=== PATIENT | male | born 1945 | race Caucasian/White ===

== ENCOUNTER 2020-12-29 06:16 | Observation (INO) | payer MEDICARE ==
[2020-12-29] MEDS ORDERED: Sodium Chloride 0.9% 1,000 ML IV SCH ×2 (07:15→13:00)
[2020-12-29] MEDS ORDERED: Lidocaine 1% 10 ML MDV INJECT ONE (07:19)
[2020-12-29] MEDS ORDERED: Lidocaine 2% Jelly 10 ML Urojet ONE (07:26)
--- NOTE | 2020-12-29 07:31 | EDM.PDOC ---
ED HPI GENERAL MEDICAL PROBLEM - General Chief Complaint: Gastrointestinal Problem Stated Complaint: RECTAL BLEEDING Time Seen by Provider: 12/29/20 07:18 Source of Information: Reports: Patient, Family History Limitations: Reports: No Limitations - History of Present Illness INITIAL COMMENTS - FREE TEXT/NARRATIVE: 75-year-old male presents to the ED for evaluation of persistent rectal bleeding of bright red blood with clots starting yesterday afternoon. He states he became constipated which she never does as his bowels tend to be on the looser side and after that he passed blood after constipated stool and is continuing to bleed. He estimates he went 6 or 8 times yesterday and woke up this morning with the discovery soaked in blood. He feels mildly lightheaded and dizzy this morning. He ate normally yesterday. Very little abdominal discomfort. He can feel his bowels working hard her grumbling and growling but no pain. No previous abdominal surgery. 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 He was seen twice in the last year for the jolanta lar problem and will be seen again in a year. Of note the patient is on Plavix 75 mg once daily after having a stent placed in September of this year in the left anterior descending artery. No myocardial infarction ensued. He is getting chest discomfort with mowing the lawn. Onset: Sudden Onset Date: 12/28/20 Onset Time: 09:00 Duration: Hour(s):, Constant Location: Reports: Other (Almost every hour to 2 hours yesterday) Quality: Reports: Other Severity: Moderate (No pain persistent bleeding per rectum) Improves with: Reports: None Worsens with: Reports: None Context: Denies: Activity, Exercise, Lifting, Sick Contact, Trauma, Other Associated Symptoms: Reports: Weakness, Other. Denies: Confusion, Chest Pain, Cough, cough w sputum, Diaphoresis, Fever/Chills, Headaches, Loss of Appetite, Malaise, Nausea/Vomiting, Rash, Seizure, Shortness of Breath, Syncope Treatments [employer]: Reports: Other (see below) (Only prescribed medications) Rectal Pain Score (Numeric/FACES): 6 - Related Data Allergies Allergy/AdvReac Type Severity Reaction Status Date / Time No Known Allergies Allergy Verified 12/29/20 06:31 Home Meds: Home Meds ALPRAZolam 2 mg PO BEDTIME 12/29/20 [History] Acetaminophen [Tylenol] 500 mg PO Q6HR PRN 12/29/20 [History] Aspirin [Halfprin] 81 mg PO DAILY 12/29/20 [History] Clopidogrel Bisulfate [Plavix] 75 mg PO DAILY 12/29/20 [History] Magnesium 400 mg PO DAILY 12/29/20 [History] Melatonin 5 mg PO BEDTIME PRN 12/29/20 [History] Multivit-Min/FA/Lycopen/Lutein [Centrum Silver Tablet] 1 tab PO DAILY 12/29/20 [History] Pantoprazole [ProTONIX] 40 mg PO DAILY 12/29/20 [History] Psyllium Husk [Metamucil] 1 pack PO DAILY 12/29/20 [History] Rosuvastatin [Crestor] 20 mg PO DAILY 12/29/20 [History] Past Medical History Cardiovascular History: Reports: High Cholesterol, Hypertension Gastrointestinal History: Reports: Colon Polyp, Hemorrhoids Neurological History: Reports: Other (See Below) 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 Psychiatric History: Reports: Anxiety - Infectious Disease History Infectious Disease History: Reports: Chicken Pox, Measles, Mumps - Past Surgical History HEENT Surgical History: Reports: Visual Other HEENT Surgeries/Procedures: Wears glasses Cardiovascular Surgical History: Reports: Vascular Surgery Other Cardiovascular Surgeries/Procedures: Angioplasty 10/03/20 GI Surgical History: Reports: Colonoscopy, Other (See Below) Other GI Surgeries/Procedures: flex sig 12/18/20; Precancerous rectal lesion removed in 2009 Social & Family History - Family History Family Medical History: No Pertinent Family History - Tobacco Use Tobacco Use Status *Q: Never Tobacco User - Caffeine Use Caffeine Use: Reports: None - Alcohol Use Days Per Week of Alcohol Use: 2 Number of Drinks Per Day: 3 Total Drinks Per Week: 6 - Recreational Drug Use Recreational Drug Use: No - Living Situation & Occupation Living situation: Reports: Occupation: Retired Social History Comment: Currently resides [place] of the [facility] in [place]. Out in [place] on vacation ED ROS GENERAL - Review of Systems Review Of Systems: See Below Constitutional: Reports: Malaise, Weakness, Fatigue. Denies: Fever, Chills, Decreased Appetite, Weight Loss HEENT: Reports: Glasses Respiratory: Reports: Shortness of Breath. Denies: No Symptoms, Wheezing, Cough Cardiovascular: Reports: Blood Pressure Problem. Denies: Chest Pain, Claudication, Dyspnea on Exertion, Edema, Lightheadedness, Orthopnea, Palpitations Endocrine: Reports: Fatigue GI/Abdominal: Reports: Other (Bright red bleeding per rectum.). Denies: Abdominal Pain : Reports: Frequency, Other (Nocturia x2-3) Musculoskeletal: Reports: Neck Pain, Shoulder Pain, Back Pain, Joint Pain Skin: Reports: No Symptoms (Occasional knee and hip pain) Neurological: Reports: Dizziness, Weakness (Over the last day.) Psychiatric: Reports: No Symptoms Hematologic/Lymphatic: Reports: No Symptoms Immunologic: Reports: No Symptoms ED EXAM, GI/ABD - Physical Exam Exam: See Below Exam Limited By: No Limitations General Appearance: Alert, WD/WN, No Apparent Distress, Other (Patient is pallid in appearance. Temperature is 36.0 with a heart rate of 103 at sinus at the bedside respiratory is 14 with O2 sats of 100% room air. BP 117/83) Eyes: Bilateral: Normal Appearance (Mild blepharal pallor no scleral icterus) Throat/Mouth: Normal Inspection, Normal Lips, Normal Oropharynx, Other Head: Atraumatic (Tongue is mildly dry and coated), Normocephalic Neck: Normal Inspection, Supple, Non-Tender, Full Range of Motion. No: Lymphadenopathy (L), Lymphadenopathy (R) Respiratory/Chest: No Respiratory Distress, Lungs Clear, Normal Breath Sounds, No Accessory Muscle Use Cardiovascular: Normal Peripheral Pulses, Regular Rate, Rhythm, No Edema, No Gallop, No Murmur, No Rub GI/Abdominal Exam: Normal Bowel Sounds, Soft, Non-Tender, No Organomegaly, No Distention, No Abnormal Bruit (Male) Exam: No Hernia Rectal (Males) Exam: Normal Rectal Tone, Other (Bright red blood per rectum.) Back Exam: Normal Inspection, Full Range of Motion. No: CVA Tenderness (L), CVA Tenderness (R) Extremities: Normal Inspection, Normal Range of Motion, Non-Tender, No Pedal Edema Neurological: Alert, Oriented, CN II-XII Intact, Normal Cognition, No Motor/Sensory Deficits Psychiatric: Normal Affect, Normal Mood Skin Exam: Warm, Dry, Intact, Pallor (Mildly pallid) ED ABDOMINAL/GI PROCEDURES - Additional/Other Procedure(s) Procedure(s) (Free Text): Rigid sigmoidoscopy performed up to 18 cm but I all encountered was bright red fresh blood up to that area. I cannot localize that it was coming from anyone source. It is pure bright red blood without clots. Patient tolerated the procedure well. Course - Vital Signs Last Recorded V/S: Last Vital Signs Temp 36.6 C 12/29/20 19:33 Pulse 88 12/29/20 19:33 Resp 12 12/29/20 19:33 BP 126/67 12/29/20 19:33 Pulse Ox 97 12/29/20 19:33 Orthostatic Blood Pressure [ 84/47 Standing] Orthostatic Blood Pressure [ 124/77 Supine] - Orders/Labs/Meds Orders: Active Orders 24 hr Category Date Time Status Patient Status [ADT] Routine ADT 12/29/20 16:11 Active Oxygen Therapy [RC] PRN Care 12/29/20 16:11 Active Up With Assistance [RC] ASDIRECTED Care 12/29/20 16:11 Active VTE/DVT Education [RC] PER UNIT ROUTINE Care 12/29/20 16:11 Active Vital Signs [RC] Q4H Care 12/29/20 16:11 Active Regular Diet [DIET] Diet 12/29/20 Dinner Active ALPRAZolam [ALPRAZolam] Med 12/29/20 21:00 Ordered 2 mg PO BEDTIME Aspirin [Halfprin] Med 12/30/20 09:00 Active 81 mg PO DAILY Clopidogrel [Plavix] Med 12/30/20 09:00 Pending 75 mg PO DAILY Dextrose 5%-0.9% NaCl [Dextrose 5%-Normal Saline] 1,000 Med 12/29/20 12:00 Active ml IV ASDIRECTED Magnesium Oxide Med 12/30/20 09:00 Active 400 mg PO DAILY Melatonin Med 12/29/20 21:00 Active 6 mg PO BEDTIME PRN Rosuvastatin Med 12/30/20 09:00 Ordered 20 mg PO DAILY Sodium Chloride 0.9% [Normal Saline] 1,000 ml Med 12/29/20 13:00 Active IV ASDIRECTED Schedule Procedure [COMM] Stat Oth 12/29/20 13:02 Ordered Transfuse PRBC [Transfuse Red Blood Cells] [COMM] Stat Ot 12/29/20 12:48 Ordered Resuscitation Status Routine Resus Stat 12/29/20 16:11 Ordered Medication Orders Aspirin (Aspirin 81 Mg Tab.Ec) 81 mg PO DAILY [facility] Clopidogrel Bisulfate (Clopidogrel 75 Mg Tab) 75 mg PO DAILY [facility] Dextrose/Sodium Chloride (Dextrose 5%-Normal Saline) 1,000 mls @ 250 mls/hr IV ASDIRECTED CHUNG Last Admin: 12/29/20 12:08 Dose: 250 mls/hr Documented by: NICOLE Sodium Chloride (Normal Saline) 1,000 mls @ 150 mls/hr IV ASDIRECTED CHUNG Last Admin: 12/29/20 13:25 Dose: 150 mls/hr Documented by: NICOLE Magnesium Oxide (Magnesium Oxide 400 Mg Tab) 400 mg PO DAILY [facility] Melatonin (Melatonin 3 Mg Tab) 6 mg PO BEDTIME PRN PRN Reason: Sleep Non-Formulary Medication (Alprazolam [Alprazolam]) 2 mg PO BEDTIME CHUNG Non-Formulary Medication (Rosuvastatin) 20 mg PO DAILY [facility] Oxycodone/Acetaminophen (Acetaminophen/Oxycodone 325-5 Mg Tab) 1 tab PO Q4H PRN PRN Reason: Pain (moderate 4-6) Last Admin: 12/29/20 19:03 Dose: 1 tab Documented by: WENDI Pantoprazole Sodium (Pantoprazole 40 Mg Tab.Cr) 40 mg PO ACBREAKFAST [facility] Labs: Laboratory Tests 12/29/20 12/29/20 12/29/20 Range/Units 07:15 07:15 07:15 WBC 5.90 (4.23-9.07) K/mm3 RBC 3.58 L (4.63-6.08) M/mm3 Hgb 11.5 L (13.7-17.5) gm/dl Hct 35.6 L (40.1-51.0) % MCV 99.4 H (79.0-92.2) fl MCH 32.1 (25.7-32.2) pg MCHC 32.3 (32.2-35.5) g/dl RDW Std Deviation 50.3 H (35.1-43.9) fL Plt Count 179 (163-337) K/mm3 MPV 11.5 (9.4-12.3) fl Neut % (Auto) 52.7 (34.0-67.9) % Lymph % (Auto) 29.8 (21.8-53.1) % Long % (Auto) 15.8 H (5.3-12.2) % Eos % (Auto) 1.2 (0.8-7.0) Baso % (Auto) 0.3 (0.1-1.2) % Neut # (Auto) 3.11 (1.78-5.38) K/mm3 Lymph # (Auto) 1.76 (1.32-3.57) K/mm3 Long # (Auto) 0.93 H (0.30-0.82) K/mm3 Eos # (Auto) 0.07 (0.04-0.54) K/mm3 Baso # (Auto) 0.02 (0.01-0.08) K/mm3 PT (9.7-12.0) SECONDS INR APTT (21.7-31.4) SECONDS Sodium 138 (136-145) mEq/L Potassium 3.9 (3.5-5.1) mEq/L Chloride 104 (98-107) mEq/L Carbon Dioxide 29 (21-32) mEq/L Anion Gap 8.9 (5-15) BUN 17 (7-18) mg/dL Creatinine 0.9 (0.7-1.3) mg/dL Est Cr Clr Drug Dosing 75.48 mL/min Estimated GFR (MDRD) > 60 (>60) mL/min BUN/Creatinine Ratio 18.9 H (14-18) Glucose 128 H (70-99) mg/dL Calcium 8.2 L (8.5-10.1) mg/dL Total Bilirubin 0.4 (0.2-1.0) mg/dL AST 11 L (15-37) U/L ALT 19 (16-63) U/L Alkaline Phosphatase 45 L (46-116) U/L NT-Pro-B Natriuret Pep (0-125) pg/mL Total Protein 6.7 (6.4-8.2) g/dl Albumin 3.4 (3.4-5.0) g/dl Globulin 3.3 gm/dL Albumin/Globulin Ratio 1.0 (1-2) SARS-CoV-2 RNA (YOBANY) (NEGATIVE) Blood Type A POSITIVE Gel Antibody Screen Negative Crossmatch See Detail 09/13/21 09/13/21 09/13/21 Range/Units 07:15 08:43 12:00 WBC (4.23-9.07) K/mm3 RBC (4.63-6.08) M/mm3 Hgb (13.7-17.5) gm/dl Hct (40.1-51.0) % MCV (79.0-92.2) fl MCH (25.7-32.2) pg MCHC (32.2-35.5) g/dl RDW Std Deviation (35.1-43.9) fL Plt Count (163-337) K/mm3 MPV (9.4-12.3) fl Neut % (Auto) (34.0-67.9) % Lymph % (Auto) (21.8-53.1) % Long % (Auto) (5.3-12.2) % Eos % (Auto) (0.8-7.0) Baso % (Auto) (0.1-1.2) % Neut # (Auto) (1.78-5.38) K/mm3 Lymph # (Auto) (1.32-3.57) K/mm3 Long # (Auto) (0.30-0.82) K/mm3 Eos # (Auto) (0.04-0.54) K/mm3 Baso # (Auto) (0.01-0.08) K/mm3 PT 10.6 (9.7-12.0) SECONDS INR 0.95 APTT 22.2 (21.7-31.4) SECONDS Sodium (136-145) mEq/L Potassium (3.5-5.1) mEq/L Chloride (98-107) mEq/L Carbon Dioxide (21-32) mEq/L Anion Gap (5-15) BUN (7-18) mg/dL Creatinine (0.7-1.3) mg/dL Est Cr Clr Drug Dosing mL/min Estimated GFR (MDRD) (>60) mL/min BUN/Creatinine Ratio (14-18) Glucose (70-99) mg/dL Calcium (8.5-10.1) mg/dL Total Bilirubin (0.2-1.0) mg/dL AST (15-37) U/L ALT (16-63) U/L Alkaline Phosphatase (46-116) U/L NT-Pro-B Natriuret Pep (0-125) pg/mL Total Protein (6.4-8.2) g/dl Albumin (3.4-5.0) g/dl Globulin gm/dL Albumin/Globulin Ratio (1-2) SARS-CoV-2 RNA (YOBANY) Negative (NEGATIVE) Blood Type Gel Antibody Screen Crossmatch See Detail 12/29/20 Range/Units 12:20 WBC (4.23-9.07) K/mm3 RBC (4.63-6.08) M/mm3 Hgb (13.7-17.5) gm/dl Hct (40.1-51.0) % MCV (79.0-92.2) fl MCH (25.7-32.2) pg MCHC (32.2-35.5) g/dl RDW Std Deviation (35.1-43.9) fL Plt Count (163-337) K/mm3 MPV (9.4-12.3) fl Neut % (Auto) (34.0-67.9) % Lymph % (Auto) (21.8-53.1) % Long % (Auto) (5.3-12.2) % Eos % (Auto) (0.8-7.0) Baso % (Auto) (0.1-1.2) % Neut # (Auto) (1.78-5.38) K/mm3 Lymph # (Auto) (1.32-3.57) K/mm3 Long # (Auto) (0.30-0.82) K/mm3 Eos # (Auto) (0.04-0.54) K/mm3 Baso # (Auto) (0.01-0.08) K/mm3 PT (9.7-12.0) SECONDS INR APTT (21.7-31.4) SECONDS Sodium (136-145) mEq/L Potassium (3.5-5.1) mEq/L Chloride (98-107) mEq/L Carbon Dioxide (21-32) mEq/L Anion Gap (5-15) BUN (7-18) mg/dL Creatinine (0.7-1.3) mg/dL Est Cr Clr Drug Dosing mL/min Estimated GFR (MDRD) (>60) mL/min BUN/Creatinine Ratio (14-18) Glucose (70-99) mg/dL Calcium (8.5-10.1) mg/dL Total Bilirubin (0.2-1.0) mg/dL AST (15-37) U/L ALT (16-63) U/L Alkaline Phosphatase (46-116) U/L NT-Pro-B Natriuret Pep 36 (0-125) pg/mL Total Protein (6.4-8.2) g/dl Albumin (3.4-5.0) g/dl Globulin gm/dL Albumin/Globulin Ratio (1-2) SARS-CoV-2 RNA (YOBANY) (NEGATIVE) Blood Type Gel Antibody Screen Crossmatch Meds: Medications Generic Name Dose Route Start Last Admin Trade Name Freq PRN Reason Stop Dose Admin Aspirin 81 mg 12/30/20 09:00 Aspirin 81 Mg Tab.Ec PO DAILY [facility]G Clopidogrel Bisulfate 75 mg 12/30/20 09:00 Clopidogrel 75 Mg Tab PO DAILY [facility] Dextrose/Sodium Chloride 1,000 mls @ 250 mls/hr 12/29/20 12:00 12/29/20 12:08 Dextrose 5%-Normal Saline IV 250 mls/hr ASDIRECTED CHUNG Administration Sodium Chloride 1,000 mls @ 150 mls/hr 12/29/20 13:00 12/29/20 13:25 Normal Saline IV 150 mls/hr ASDIRECTED CHUNG Administration Magnesium Oxide 400 mg 12/30/20 09:00 Magnesium Oxide 400 Mg Tab PO DAILY [facility]G Melatonin 6 mg 12/29/20 21:00 Melatonin 3 Mg Tab PO BEDTIME PRN Sleep Non-Formulary Medication 2 mg 12/29/20 21:00 Alprazolam [Alprazolam] PO BEDTIME CHUNG Non-Formulary Medication 20 mg 12/30/20 09:00 Rosuvastatin PO DAILY [facility] Oxycodone/Acetaminophen 1 tab 12/29/20 18:42 12/29/20 19:03 Acetaminophen/Oxycodone 325-5 Mg Tab PO 1 tab Q4H PRN Administration Pain (moderate 4-6) Pantoprazole Sodium 40 mg 12/30/20 06:00 Pantoprazole 40 Mg Tab.Cr PO ACBREAKFAST CHUNG Discontinued Medications Generic Name Dose Route Start Last Admin Trade Name Freq PRN Reason Stop Dose Admin Citric Acid/Sodium Citrate Confirm 12/29/20 12:56 Citric Acid/Sodium Citrate Solution 30 Ml Cup Administered 12/29/20 12:57 Dose 30 ml .ROUTE .STK-MED ONE Sodium Chloride 1,000 mls @ 999 mls/hr 12/29/20 07:15 12/29/20 07:32 Normal Saline IV 150 mls/hr ASDIRECTED CHUNG Administration Pantoprazole Sodium 80 mg/ 100 mls @ 10 mls/hr 12/29/20 12:00 12/29/20 12:33 Sodium Chloride IV 10 mls/hr Q10H CHUNG Administration Lidocaine HCl Confirm 12/29/20 12:53 Xylocaine-Mpf 1% Administered 12/29/20 12:54 Dose 4 mls @ as directed .ROUTE .STK-MED ONE Lactated Ringer's Confirm 12/29/20 15:00 Ringers, Lactated Administered 12/29/20 15:01 Dose 1,000 mls @ as directed .ROUTE .STK-MED ONE Ketorolac Tromethamine 15 mg 12/29/20 18:42 12/29/20 19:02 Ketorolac 15 Mg/Ml Sdv IVPUSH 12/29/20 18:43 15 mg ONETIME ONE Administration Lidocaine HCl 10 ml 12/29/20 07:19 12/29/20 07:32 Lidocaine 1% 10 Ml Mdv INJECT 12/29/20 07:20 Not Given ONETIME ONE Lidocaine HCl Confirm 12/29/20 07:26 12/29/20 07:32 Lidocaine 2% Jelly 10 Ml Urojet Administered 12/29/20 07:27 10 ml Dose Administration 10 ml .ROUTE .STK-MED ONE Magnesium Citrate 240 ml 12/29/20 11:49 12/29/20 12:03 Magnesium Citrate Solution 296 Ml Bottle PO 12/29/20 11:50 240 ml ONETIME ONE Administration Metoclopramide HCl Confirm 12/29/20 12:53 Metoclopramide 10 Mg/2 Ml Sdv Administered 12/29/20 12:54 Dose 10 mg .ROUTE .STK-MED ONE Pantoprazole Sodium 40 mg 12/29/20 11:47 12/29/20 12:03 Pantoprazole 40 Mg Vial IVPUSH 12/29/20 11:48 40 mg ONETIME ONE Administration Propofol Confirm 12/29/20 12:54 Propofol 200 Mg/20 Ml Sdv Administered 12/29/20 12:55 Dose 200 mg .ROUTE .STK-MED ONE Propofol Confirm 12/29/20 14:27 Propofol 200 Mg/20 Ml Sdv Administered 12/29/20 14:28 Dose 200 mg .ROUTE .STK-MED ONE Propofol Confirm 12/29/20 15:11 Propofol 200 Mg/20 Ml Sdv Administered 12/29/20 15:12 Dose 200 mg .ROUTE .STK-MED ONE - Radiology Interpretation Free Text/Narrative:: 75-year-old male presents to the ED with acute onset of bright red bleeding starting yesterday afternoon. He had several bowel movements that contained only blood yesterday and his clothing and bed clothes were soaked with blood this morning. Patient is on Plavix for a coronary artery stent placement in September of this year. He has had a adenoma resected in his colon with recurrence of the same area and is being seen every year at present by gastroenterology. Plan I will perform a sigmoidoscopy in this patient. IV will be normal saline at open. Patient is markedly orthostatic. Blood pressure lying is 124/77 with a heart rate of 85 standing it was 184/47 with a heart rate of 121. - Re-Assessments/Exams Free Text/Narrative Re-Assessment/Exam: 12/29/20 08:13 rigid sigmoidoscopy performed up to 18 cm but all I could see was blood coming from above this area with the entire colon covered with bright red blood any loss approximately 15 mils of bright red blood during the procedure. Source not apparent. 12/29/20 08:36 White count is 5.90 with auto differential showing 52.7% neutrophils. Hemoglobin is 11.5 with hematocrit of 35.6 and MCV of 99.4 platelet count 179,000. PT is 10.6 with an INR of 0.95 and a PTT of 22.2. Sodium 138 with potassium 3.9 chloride 104 with a bicarb of 29. Anion gap is 8.9. BUN is 17 with a creatinine of 0.9 and a GFR greater than 60. Glucose is 128 with a calcium of 8.2 slightly low liver function is normal total protein 6.7 with albumin fraction of 3.4 12/29/20 09:56- I tried [facility] in [place] and they do not have a bed at present. They are currently having a meeting to decide how many discharges that will be whether could be a bed becoming available later. She will call me back in this regard. Patient is stable at this point time. [facility] in [place] is also on diversion at this time. 12/29/20 11:19 patient has passed at least at thousand mils of bright red blood per rectum in the last hour. Will be crossmatched for 2 units of packed cells with idea of likely giving him 1 unit of packed cells as soon as they become available. Pressure remained stable at 125/82. O2 sats are 95%. Heart rate 80 and sinus 12/29/20 11:46 I was able to speak to as she is out of the OR present. The plan will be to give the patient MiraLAX 7 ounces orally to provide total cleanout of his colon with a view to upper and lower GI endoscopy at approximately 1300 hrs. today. COVID-19 screen to be done. He has completed a liter of crystalloid. Second liter will be D5 normal saline at 250 mils an hour 12/29/20 12:46 patient has not passed any more stool per rectum but feels like he could go now. Anesthesia is in his room at this time. He'll be transferred to critical care and be taken to the OR shortly for upper and lower GI endoscopies. Patient's color has slowly improved. BP remained stable at 128/81 with a heart rate of 96 O2 sats are 97% on room air. Departure - Departure Time of Disposition: 14:10 Disposition: DC/Tfer to Critical Access 66 Condition: Serious Clinical Impression: Lower gastrointestinal hemorrhage - Discharge Information Sepsis Event Note (ED) - Focused Exam Vital Signs: Vital Signs Temp Pulse Pulse Resp BP BP Pulse Ox 12/29/20 15:56 36.4 C 66 14 121/70 100 12/29/20 13:26 36.5 C 90 18 106/68 12/29/20 13:12 36.6 C 88 18 145/87 H - My Orders Last 24 Hours: My Active Orders 12/29/20 12:00 Dextrose 5%-0.9% NaCl [Dextrose 5%-Normal Saline] 1,000 ml IV ASDIRECTED 12/29/20 12:48 Transfuse PRBC [Transfuse Red Blood Cells] [COMM] Stat 12/29/20 13:00 Sodium Chloride 0.9% [Normal Saline] 1,000 ml IV ASDIRECTED - Assessment/Plan Last 24 Hours: My Active Orders 12/29/20 12:00 Dextrose 5%-0.9% NaCl [Dextrose 5%-Normal Saline] 1,000 ml IV ASDIRECTED 12/29/20 12:48 Transfuse PRBC [Transfuse Red Blood Cells] [COMM] Stat 12/29/20 13:00 Sodium Chloride 0.9% [Normal Saline] 1,000 ml IV ASDIRECTED
[2020-12-29] MEDS ORDERED: Pantoprazole 40 MG Vial IVPUSH ONE (11:47)
[2020-12-29] MEDS ORDERED: Magnesium Citrate Solution 296 ML Bottle PO ONE (11:49)
[2020-12-29] MEDS ORDERED: Dextrose 5%-0.9% NaCl 1,000 ML IV SCH (12:00)
[2020-12-29] MEDS ORDERED: Pantoprazole 80 MG in Sodium Chloride 0.9% 100 ML IV SCH (12:00)
--- NOTE | 2020-12-29 12:41 | PCM.PREANE ---
Preanesthetic Assessment - Anesthesia/Transfusion/Family Hx Anesthesia History: Prior Anesthesia Without Reaction Family History of Anesthesia Reaction: No Transfusion History: No Prior Transfusion(s) Intubation History: Unknown - Review of Systems General: Weakness Pulmonary: No Symptoms Cardiovascular: No Symptoms Gastrointestinal: Other (rectal bleeeding) Neurological: Dizziness (viral neuronitis right peripheral vestibular hypofunction diagnosed 2019) Other: Reports: Easy Bleeding, Easy Bruising - Physical Assessment NPO Status Date: 12/29/20 NPO Status Time: 12:00 Vital Signs: Last Vital Signs Temp 36.0 C L 12/29/20 06:30 Pulse 103 H 12/29/20 06:30 Resp 14 12/29/20 06:30 BP 117/83 12/29/20 06:30 Pulse Ox 100 12/29/20 06:30 Orthostatic Blood Pressure [ 84/47 Standing] Orthostatic Blood Pressure [ 124/77 Supine] Height: 1.78 m Weight: 85.321 kg ASA Class: 3E Mental Status: Alert & Oriented x3 Airway Class: Mallampati = 1 Dentition: Reports: Normal Dentition Thyro-Mental Finger Breadths: 3 Mouth Opening Finger Breadths: 3 ROM/Head Extension: Full Lungs: Clear to Auscultation, Normal Respiratory Effort Cardiovascular: Regular Rate, Regular Rhythm - Lab Values: Laboratory Last Values WBC 5.90 K/mm3 (4.23-9.07) 12/29/20 07:15 RBC 3.58 M/mm3 (4.63-6.08) L 12/29/20 07:15 Hgb 11.5 gm/dl (13.7-17.5) L 12/29/20 07:15 Hct 35.6 % (40.1-51.0) L 12/29/20 07:15 MCV 99.4 fl (79.0-92.2) H 12/29/20 07:15 MCH 32.1 pg (25.7-32.2) 12/29/20 07:15 MCHC 32.3 g/dl (32.2-35.5) 12/29/20 07:15 RDW Std Deviation 50.3 fL (35.1-43.9) H 12/29/20 07:15 Plt Count 179 K/mm3 (163-337) 12/29/20 07:15 MPV 11.5 fl (9.4-12.3) 12/29/20 07:15 Neut % (Auto) 52.7 % (34.0-67.9) 12/29/20 07:15 Lymph % (Auto) 29.8 % (21.8-53.1) 12/29/20 07:15 [place] % (Auto) 15.8 % (5.3-12.2) H 12/29/20 07:15 Eos % (Auto) 1.2 (0.8-7.0) 12/29/20 07:15 Baso % (Auto) 0.3 % (0.1-1.2) 12/29/20 07:15 Neut # (Auto) 3.11 K/mm3 (1.78-5.38) 12/29/20 07:15 Lymph # (Auto) 1.76 K/mm3 (1.32-3.57) 12/29/20 07:15 [place] # (Auto) 0.93 K/mm3 (0.30-0.82) H 12/29/20 07:15 Eos # (Auto) 0.07 K/mm3 (0.04-0.54) 12/29/20 07:15 Baso # (Auto) 0.02 K/mm3 (0.01-0.08) 12/29/20 07:15 PT 10.6 SECONDS (9.7-12.0) 12/29/20 07:15 INR 0.95 12/29/20 07:15 APTT 22.2 SECONDS (21.7-31.4) 12/29/20 07:15 Sodium 138 mEq/L (136-145) 12/29/20 07:15 Potassium 3.9 mEq/L (3.5-5.1) 12/29/20 07:15 Chloride 104 mEq/L (98-107) 12/29/20 07:15 Carbon Dioxide 29 mEq/L (21-32) 12/29/20 07:15 Anion Gap 8.9 (5-15) 12/29/20 07:15 BUN 17 mg/dL (7-18) 12/29/20 07:15 Creatinine 0.9 mg/dL (0.7-1.3) 12/29/20 07:15 Est Cr Clr Drug Dosing 75.48 mL/min 12/29/20 07:15 Estimated GFR (MDRD) > 60 mL/min (>60) 12/29/20 07:15 BUN/Creatinine Ratio 18.9 (14-18) H 12/29/20 07:15 Glucose 128 mg/dL (70-99) H 12/29/20 07:15 Calcium 8.2 mg/dL (8.5-10.1) L 12/29/20 07:15 Total Bilirubin 0.4 mg/dL (0.2-1.0) 12/29/20 07:15 AST 11 U/L (15-37) L 12/29/20 07:15 ALT 19 U/L (16-63) 12/29/20 07:15 Alkaline Phosphatase 45 U/L (46-116) L 12/29/20 07:15 Total Protein 6.7 g/dl (6.4-8.2) 12/29/20 07:15 Albumin 3.4 g/dl (3.4-5.0) 12/29/20 07:15 Globulin 3.3 gm/dL 12/29/20 07:15 Albumin/Globulin Ratio 1.0 (1-2) 12/29/20 07:15 Blood Type A POSITIVE 12/29/20 07:15 Gel Antibody Screen Negative 12/29/20 07:15 Crossmatch See Detail 12/29/20 08:43 - Allergies Allergies/Adverse Reactions: Allergies Allergy/AdvReac Type Severity Reaction Status Date / Time No Known Allergies Allergy Verified 12/29/20 06:31 - Acknowledgements Anesthesia Type Planned: MAC Pt an Appropriate Candidate for the Planned Anesthesia: Yes Alternatives and Risks of Anesthesia Discussed w Pt/Guardian: Yes Pt/Guardian Understands and Agrees with Anesthesia Plan: Yes PreAnesthesia Questionnaire HEENT History: Reports: Impaired Vision Cardiovascular History: Reports: CAD, High Cholesterol, Hypertension Respiratory History: Reports: None Gastrointestinal History: Reports: Colon Polyp, Hemorrhoids Genitourinary History: Reports: None Musculoskeletal History: Reports: None Neurological History: Reports: Other (See Below) 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 Psychiatric History: Reports: Anxiety Endocrine/Metabolic History: Reports: None - Infectious Disease History Infectious Disease History: Reports: Chicken Pox, Measles, Mumps - Past Surgical History HEENT Surgical History: Reports: Visual Other HEENT Surgeries/Procedures: Wears glasses Cardiovascular Surgical History: Reports: Vascular Surgery Other Cardiovascular Surgeries/Procedures: Angioplasty 10/03/20 GI Surgical History: Reports: Colonoscopy, Other (See Below) Other GI Surgeries/Procedures: flex sig 12/18/20; Precancerous rectal lesion removed in 2009 - SUBSTANCE USE Tobacco Use Status *Q: Never Tobacco User Days Per Week of Alcohol Use: 2 Number of Drinks Per Day: 3 Total Drinks Per Week: 6 Recreational Drug Use History: No - HOME MEDS Home Medications: Home Meds ALPRAZolam 2 mg PO BEDTIME 12/29/20 [History] Acetaminophen [Tylenol] 500 mg PO Q6HR PRN 12/29/20 [History] Aspirin [Halfprin] 81 mg PO DAILY 12/29/20 [History] Clopidogrel Bisulfate [Plavix] 75 mg PO DAILY 12/29/20 [History] Magnesium 400 mg PO DAILY 12/29/20 [History] Melatonin 5 mg PO BEDTIME PRN 12/29/20 [History] Multivit-Min/FA/Lycopen/Lutein [Centrum Silver Tablet] 1 tab PO DAILY 12/29/20 [History] Pantoprazole [ProTONIX] 40 mg PO DAILY 12/29/20 [History] Psyllium Husk [Metamucil] 1 pack PO DAILY 12/29/20 [History] Rosuvastatin [Crestor] 20 mg PO DAILY 12/29/20 [History] - CURRENT (IN HOUSE) MEDS Current Meds: Current Medications Sodium Chloride (Normal Saline) 1,000 mls @ 999 mls/hr IV ASDIRECTED [facility] Last Admin: 12/29/20 07:32 Dose: 150 mls/hr Documented by: Pantoprazole Sodium 80 mg/ (Sodium Chloride) 100 mls @ 10 mls/hr IV Q10H [facility] Last Admin: 12/29/20 12:33 Dose: 10 mls/hr Documented by: Dextrose/Sodium Chloride (Dextrose 5%-Normal Saline) 1,000 mls @ 250 mls/hr IV ASDIRECTED [facility] Last Admin: 12/29/20 12:08 Dose: 250 mls/hr Documented by: Discontinued Medications Lidocaine HCl (Lidocaine 1% 10 Ml Mdv) 10 ml INJECT ONETIME ONE Stop: 12/29/20 07:20 Last Admin: 12/29/20 07:32 Dose: Not Given Documented by: Lidocaine HCl (Lidocaine 2% Jelly 10 Ml Urojet) Confirm Administered Dose 10 ml .ROUTE .STK-MED ONE Stop: 12/29/20 07:27 Last Admin: 12/29/20 07:32 Dose: 10 ml Documented by: Magnesium Citrate (Magnesium Citrate Solution 296 Ml Bottle) 240 ml PO ONETIME ONE Stop: 12/29/20 11:50 Last Admin: 12/29/20 12:03 Dose: 240 ml Documented by: Pantoprazole Sodium (Pantoprazole 40 Mg Vial) 40 mg IVPUSH ONETIME ONE Stop: 12/29/20 11:48 Last Admin: 12/29/20 12:03 Dose: 40 mg Documented by:
[2020-12-29] MEDS ORDERED: Lidocaine 1% 4 ML ONE (12:53)
[2020-12-29] MEDS ORDERED: Metoclopramide 10 MG/2 ML SDV ONE (12:53)
[2020-12-29] MEDS ORDERED: Propofol 200 MG/20 ML SDV ONE ×3 (12:54→15:11)
[2020-12-29] MEDS ORDERED: Citric Acid/Sodium Citrate Solution 30 ML Cup ONE (12:56)
[2020-12-29] MEDS ORDERED: Lactated Ringers 1,000 ML ONE (15:00)
--- NOTE | 2020-12-29 15:54 | PCM.HP.2 ---
H&P History of Present Illness - General Date of Service: 12/29/20 Admit Problem/Dx: GI bleed Source of Information: Patient, Family, Provider History Limitations: Reports: No Limitations - History of Present Illness Initial Comments - Free Text/Narative: The patient is a 75 y/o gentleman who presents with a 2 day history of rectal bleeding. He had a colonoscopy completed 11 days ago with polypectomy or biopsy done. Two days ago he had a hard stool followed by bleeding, and more bleeding today. He denies any abdominal pain. He has never had any GI bleeding in the past. He takes pantoprazole every other day for reflux symptoms. In the ED, he had lab work showing a Hg 11.5. Proctoscopy done by the ED provider did not reveal any bleeding source. he was given some magnesium citrate for bowel preparation. - Related Data Allergies/Adverse Reactions: Allergies Allergy/AdvReac Type Severity Reaction Status Date / Time No Known Allergies Allergy Verified 12/29/20 06:31 Home Medications: Home Meds ALPRAZolam 2 mg PO BEDTIME 12/29/20 [History] Acetaminophen [Tylenol] 500 mg PO Q6HR PRN 12/29/20 [History] Aspirin [Halfprin] 81 mg PO DAILY 12/29/20 [History] Clopidogrel Bisulfate [Plavix] 75 mg PO DAILY 12/29/20 [History] Magnesium 400 mg PO DAILY 12/29/20 [History] Melatonin 5 mg PO BEDTIME PRN 12/29/20 [History] Multivit-Min/FA/Lycopen/Lutein [Centrum Silver Tablet] 1 tab PO DAILY 12/29/20 [History] Pantoprazole [ProTONIX] 40 mg PO DAILY 12/29/20 [History] Psyllium Husk [Metamucil] 1 pack PO DAILY 12/29/20 [History] Rosuvastatin [Crestor] 20 mg PO DAILY 12/29/20 [History] Past Medical History HEENT History: Reports: Impaired Vision Cardiovascular History: Reports: CAD, High Cholesterol, Hypertension Respiratory History: Reports: None Gastrointestinal History: Reports: Colon Polyp, Hemorrhoids Genitourinary History: Reports: None Musculoskeletal History: Reports: None Neurological History: Reports: Other (See Below) 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 Psychiatric History: Reports: Anxiety Endocrine/Metabolic History: Reports: None - Infectious Disease History Infectious Disease History: Reports: Chicken Pox, Measles, Mumps - Past Surgical History HEENT Surgical History: Reports: Visual Other HEENT Surgeries/Procedures: Wears glasses Cardiovascular Surgical History: Reports: Vascular Surgery Other Cardiovascular Surgeries/Procedures: coronary artery Angioplasty 10/03/20 GI Surgical History: Reports: Colonoscopy, Other (See Below) Other GI Surgeries/Procedures: flex sig 12/18/20; Precancerous rectal lesion removed in 2009 Social & Family History - Family History Family Medical History: No Pertinent Family History - Tobacco Use Tobacco Use Status *Q: Never Tobacco User - Caffeine Use Caffeine Use: Reports: None - Alcohol Use Days Per Week of Alcohol Use: 2 Number of Drinks Per Day: 3 Total Drinks Per Week: 6 - Recreational Drug Use Recreational Drug Use: No - Living Situation & Occupation Living situation: Reports: Occupation: Retired H&P Review of Systems - Review of Systems: Review Of Systems: See Below General: Reports: No Symptoms HEENT: Reports: No Symptoms Pulmonary: Reports: No Symptoms Cardiovascular: Reports: No Symptoms Gastrointestinal: Reports: Bloody Stool Genitourinary: Reports: No Symptoms Musculoskeletal: Reports: No Symptoms Skin: Reports: No Symptoms Neurological: Reports: No Symptoms Hematologic/Lymphatic: Reports: No Symptoms Exam - Exam Exam: See Below - Vital Signs Vital Signs: Last Vital Signs Temp 36.5 C 12/29/20 13:26 Pulse 90 12/29/20 13:26 Resp 18 12/29/20 13:26 BP 106/68 12/29/20 13:26 Pulse Ox 100 12/29/20 06:30 Orthostatic Blood Pressure [ 84/47 Standing] Orthostatic Blood Pressure [ 124/77 Supine] Weight: 85.321 kg - Exam Quality Assessment: No: Supplemental Oxygen General: Alert, Oriented HEENT: Conjunctiva Clear, EOMI Neck: Supple Lungs: Normal Respiratory Effort Cardiovascular: Regular Rate, Regular Rhythm GI/Abdominal Exam: Soft, Non-Tender, No Distention, Other (hyperactive bowel motility on palpation) Rectal (Males) Exam: Bloody Stool Extremities: Normal Inspection, No Pedal Edema Peripheral Pulses: 2+: Dorsalis Pedis (L), Dorsalis Pedis (R) Skin: Warm, Dry, Intact Neurological: Cranial Nerves Intact Neuro Extensive - Mental Status: Normal Mood/Affect - Patient Data Lab Results Last 24 hrs: Laboratory Results - last 24 hr 12/29/20 12/29/20 12/29/20 Range/Units 07:15 07:15 07:15 WBC 5.90 (4.23-9.07) K/mm3 RBC 3.58 L (4.63-6.08) M/mm3 Hgb 11.5 L (13.7-17.5) gm/dl Hct 35.6 L (40.1-51.0) % MCV 99.4 H (79.0-92.2) fl MCH 32.1 (25.7-32.2) pg MCHC 32.3 (32.2-35.5) g/dl RDW Std Deviation 50.3 H (35.1-43.9) fL Plt Count 179 (163-337) K/mm3 MPV 11.5 (9.4-12.3) fl Neut % (Auto) 52.7 (34.0-67.9) % Lymph % (Auto) 29.8 (21.8-53.1) % [place] % (Auto) 15.8 H (5.3-12.2) % Eos % (Auto) 1.2 (0.8-7.0) Baso % (Auto) 0.3 (0.1-1.2) % Neut # (Auto) 3.11 (1.78-5.38) K/mm3 Lymph # (Auto) 1.76 (1.32-3.57) K/mm3 [place] # (Auto) 0.93 H (0.30-0.82) K/mm3 Eos # (Auto) 0.07 (0.04-0.54) K/mm3 Baso # (Auto) 0.02 (0.01-0.08) K/mm3 PT (9.7-12.0) SECONDS INR APTT (21.7-31.4) SECONDS Sodium 138 (136-145) mEq/L Potassium 3.9 (3.5-5.1) mEq/L Chloride 104 (98-107) mEq/L Carbon Dioxide 29 (21-32) mEq/L Anion Gap 8.9 (5-15) BUN 17 (7-18) mg/dL Creatinine 0.9 (0.7-1.3) mg/dL Est Cr Clr Drug Dosing 75.48 mL/min Estimated GFR (MDRD) > 60 (>60) mL/min BUN/Creatinine Ratio 18.9 H (14-18) Glucose 128 H (70-99) mg/dL Calcium 8.2 L (8.5-10.1) mg/dL Total Bilirubin 0.4 (0.2-1.0) mg/dL AST 11 L (15-37) U/L ALT 19 (16-63) U/L Alkaline Phosphatase 45 L (46-116) U/L NT-Pro-B Natriuret Pep (0-125) pg/mL Total Protein 6.7 (6.4-8.2) g/dl Albumin 3.4 (3.4-5.0) g/dl Globulin 3.3 gm/dL Albumin/Globulin Ratio 1.0 (1-2) SARS-CoV-2 RNA (YOBANY) (NEGATIVE) Blood Type A POSITIVE Gel Antibody Screen Negative Crossmatch See Detail 12/29/20 12/29/20 12/29/20 Range/Units 07:15 08:43 12:00 WBC (4.23-9.07) K/mm3 RBC (4.63-6.08) M/mm3 Hgb (13.7-17.5) gm/dl Hct (40.1-51.0) % MCV (79.0-92.2) fl MCH (25.7-32.2) pg MCHC (32.2-35.5) g/dl RDW Std Deviation (35.1-43.9) fL Plt Count (163-337) K/mm3 MPV (9.4-12.3) fl Neut % (Auto) (34.0-67.9) % Lymph % (Auto) (21.8-53.1) % [place] % (Auto) (5.3-12.2) % Eos % (Auto) (0.8-7.0) Baso % (Auto) (0.1-1.2) % Neut # (Auto) (1.78-5.38) K/mm3 Lymph # (Auto) (1.32-3.57) K/mm3 [place] # (Auto) (0.30-0.82) K/mm3 Eos # (Auto) (0.04-0.54) K/mm3 Baso # (Auto) (0.01-0.08) K/mm3 PT 10.6 (9.7-12.0) SECONDS INR 0.95 APTT 22.2 (21.7-31.4) SECONDS Sodium (136-145) mEq/L Potassium (3.5-5.1) mEq/L Chloride (98-107) mEq/L Carbon Dioxide (21-32) mEq/L Anion Gap (5-15) BUN (7-18) mg/dL Creatinine (0.7-1.3) mg/dL Est Cr Clr Drug Dosing mL/min Estimated GFR (MDRD) (>60) mL/min BUN/Creatinine Ratio (14-18) Glucose (70-99) mg/dL Calcium (8.5-10.1) mg/dL Total Bilirubin (0.2-1.0) mg/dL AST (15-37) U/L ALT (16-63) U/L Alkaline Phosphatase (46-116) U/L NT-Pro-B Natriuret Pep (0-125) pg/mL Total Protein (6.4-8.2) g/dl Albumin (3.4-5.0) g/dl Globulin gm/dL Albumin/Globulin Ratio (1-2) SARS-CoV-2 RNA (YOBANY) Negative (NEGATIVE) Blood Type Gel Antibody Screen Crossmatch See Detail 12/29/20 Range/Units 12:20 WBC (4.23-9.07) K/mm3 RBC (4.63-6.08) M/mm3 Hgb (13.7-17.5) gm/dl Hct (40.1-51.0) % MCV (79.0-92.2) fl MCH (25.7-32.2) pg MCHC (32.2-35.5) g/dl RDW Std Deviation (35.1-43.9) fL Plt Count (163-337) K/mm3 MPV (9.4-12.3) fl Neut % (Auto) (34.0-67.9) % Lymph % (Auto) (21.8-53.1) % [place] % (Auto) (5.3-12.2) % Eos % (Auto) (0.8-7.0) Baso % (Auto) (0.1-1.2) % Neut # (Auto) (1.78-5.38) K/mm3 Lymph # (Auto) (1.32-3.57) K/mm3 [place] # (Auto) (0.30-0.82) K/mm3 Eos # (Auto) (0.04-0.54) K/mm3 Baso # (Auto) (0.01-0.08) K/mm3 PT (9.7-12.0) SECONDS INR APTT (21.7-31.4) SECONDS Sodium (136-145) mEq/L Potassium (3.5-5.1) mEq/L Chloride (98-107) mEq/L Carbon Dioxide (21-32) mEq/L Anion Gap (5-15) BUN (7-18) mg/dL Creatinine (0.7-1.3) mg/dL Est Cr Clr Drug Dosing mL/min Estimated GFR (MDRD) (>60) mL/min BUN/Creatinine Ratio (14-18) Glucose (70-99) mg/dL Calcium (8.5-10.1) mg/dL Total Bilirubin (0.2-1.0) mg/dL AST (15-37) U/L ALT (16-63) U/L Alkaline Phosphatase (46-116) U/L NT-Pro-B Natriuret Pep 36 (0-125) pg/mL Total Protein (6.4-8.2) g/dl Albumin (3.4-5.0) g/dl Globulin gm/dL Albumin/Globulin Ratio (1-2) SARS-CoV-2 RNA (YOBANY) (NEGATIVE) Blood Type Gel Antibody Screen Crossmatch Result Diagrams: 12/29/20 07:15 12/29/20 07:15 Sepsis Event Note - Focused Exam Vital Signs: Vital Signs Temp Temp Pulse Resp BP Pulse Ox 12/29/20 13:26 36.5 C 90 18 106/68 12/29/20 13:12 36.6 C 88 18 145/87 H 12/29/20 06:30 36.0 C L 103 H 14 117/83 100 *Q Meaningful Use (ADM) - VTE *Q VTE Pharmacological Contraindications *Q: Active Hemorrhage - Problem List (1) GI bleed SNOMED Code(s): 15941288 ICD Code: K92.2 - GASTROINTESTINAL HEMORRHAGE, UNSPECIFIED Status: Acute Current Visit: Yes Problem List Initiated/Reviewed/Updated: Yes Orders Last 24hrs: Active Orders 24 hr Category Date Time Status Orthostatic Vital Signs [RC] ASDIRECTED Care 12/29/20 07:09 Active RED BLOOD CELLS LP [BBK] Stat Lab 12/29/20 07:15 Results TYPE AND SCREEN [BBK] Stat Lab 12/29/20 07:15 Results Dextrose 5%-0.9% NaCl [Dextrose 5%-Normal Saline] 1,000 Med 12/29/20 12:00 Active ml IV ASDIRECTED Pantoprazole [ProTONIX IV] 80 mg Med 12/29/20 12:00 Active Sodium Chloride 0.9% [Normal Saline] 100 ml IV Q10H Sodium Chloride 0.9% [Normal Saline] 1,000 ml Med 12/29/20 07:15 Active IV ASDIRECTED Sodium Chloride 0.9% [Normal Saline] 1,000 ml Med 12/29/20 13:00 Active IV ASDIRECTED Schedule Procedure [COMM] Stat Ot 12/29/20 13:02 Ordered Transfuse PRBC [Transfuse Red Blood Cells] [COMM] Stat Ot 12/29/20 12:48 Ordered Medication Orders Sodium Chloride (Normal Saline) 1,000 mls @ 999 mls/hr IV ASDIRECTED [facility] Last Admin: 12/29/20 07:32 Dose: 150 mls/hr Documented by: MOR Pantoprazole Sodium 80 mg/ (Sodium Chloride) 100 mls @ 10 mls/hr IV Q10H [facility] Last Admin: 12/29/20 12:33 Dose: 10 mls/hr Documented by: POHEBE Dextrose/Sodium Chloride (Dextrose 5%-Normal Saline) 1,000 mls @ 250 mls/hr IV ASDIRECTED [facility] Last Admin: 12/29/20 12:08 Dose: 250 mls/hr Documented by: NICOLE Sodium Chloride (Normal Saline) 1,000 mls @ 150 mls/hr IV ASDIRECTED [facility] Last Admin: 12/29/20 13:25 Dose: 150 mls/hr Documented by: NICOLE Assessment/Plan Comment:: 75 y/o gentleman with GI bleeding, unclear source. - plan for EGD and colonoscopy to evaluate for bleeding source. Discussed risks of perforation, increased with intervention. His written consent was obtained. - IV protonix - bowel prep as tolerated - IV resuscitation and blood transfusion per ED provider Dori Cruz MD General surgery - Mortality Measure Prognosis:: Good
--- NOTE | 2020-12-29 16:03 | PCM.OPNOTE ---
- General Post-Op/Procedure Note Date of Surgery/Procedure: 12/29/20 Operative Procedure(s): EGD with biopsy; and colonoscopy with biopsy and hemorrhoid banding Findings: 1. Gastritis 2. Irregular Z-line with Love's changes 3. Transverse colon polyp not retrieved 4. Bleeding transverse colon polyp; partially resected and cauterized 5. Bleeding internal hemorrhoid(s) Pre Op Diagnosis: GI bleeding Post-Op Diagnosis: Bleeding internal hemorrhoid(s) Anesthesia Technique: MAC Primary Surgeon: Dori Cruz Anesthesia Provider: Hyun Matthews (and Sunil Gomez, [employer]) Pathology: 1. Gastric antrum 2. Z-line biopsies 3. Transverse colon polyp biopsy EBL in mLs: 10 Complications: none apparent Condition: Good Free Text/Narrative:: Intake & Output 12/29/20 12/29/20 12/29/20 06:59 14:59 22:59 Intake Total 150 Balance 150
--- NOTE | 2020-12-29 16:04 | PCM.PRNOTE ---
- Free Text/Narrative Note: Operative Report Date of Procedure: December 29, 2020 Pre Op Diagnosis: GI bleeding Post-Op Diagnosis: Bleeding internal hemorrhoid(s) Operative Procedures: 1. EGD with biopsy 2. Colonoscopy to the cecum with biopsy and hemorrhoid banding Primary Surgeon: Dori Cruz MD Anesthesia Provider: Hyun Matthews CRNA and Sunil Gomez CRNA Anesthesia Technique: MAC IV Fluid Replacement, Intraop: See anesthesia record Output, Urine Amount: none EBL in mLs: 10cc Findings: 1. Gastritis 2. Irregular Z-line with Love's changes 3. Transverse colon polyp not retrieved 4. Bleeding transverse colon polyp; partially resected and cauterized 5. Bleeding internal hemorrhoid(s) Specimens: 1. Gastric antrum 2. Z-line biopsies 3. Transverse colon polyp biopsy Drain/Tubes: None Indication: The patient is a 75-year-old gentleman who presented to the emergency department with significant rectal bleeding. The patient reported symptoms of bleeding for 2 days. The patient was consented for a diagnostic EGD and colonoscopy. Risk of perforation w was discussed, and the patient agreed to the risks and wished to proceed. Description of the procedure: The patient was taken back to the endoscopy suite, and placed in the left lateral decubitus position. A bite block was placed. The patient was sedated wit h MAC anesthesia. The Olympus video endoscope was inserted into the oropharynx and guided under direct vision into the esophagus, stomach, and duodenum. The duodenal bulb and second portion of the duodenum were unremarkable. The gastric antrum was inspected and cold biopsy forceps were used to take tissue samples for H. pylori. There was erythema and punctate adherent blood in this location consistent with gastritis. The scope was withdrawn to the stomach and retroflexed. There was no increased fluid, food or secretions in the upper gastrointestinal tract. There were multiple small polyps throughout the body of the stomach with a benign appearance. No erosions or ulcers were noted. The scope was withdrawn to the esophagus. Barretts esophagus changes were noted with a long tongue of salmon-colored mucosa and an additional area with a salmon-colored squamous island. The Z-line was then biopsied in 4 quadrants using a cold biopsy forceps. The endoscope was then withdrawn. Next, anorectal examination was performed. No lesions, masses or hemorrhoids were noted externally or on palpation. There was protrusion of gross blood prior to the start of the procedure. The scope was placed into the rectum and advanced to cecum. Upon reaching the cecum, and the patients cecum was entered. There was minimal tortuosity of the colon. The ileocecal valve was well visualized and the appendiceal orifice identified. At this point, the scope was slowly withdrawn, paying attention to the mucosa. The patient had very poor bowel prep due to his condition and there were clots and blood stained fluid as well as retained fecal matter in the colon this was suctioned as much as possible, however small polyps or lesions could be missed. He had a 5 mm flat polyp seen in the transverse colon. This was not removed due to his GI bleeding. The blood in the colon appeared to start around the area of the proximal transverse colon. additionally a 12 mm flat polyp that had punctate areas of bleeding were noted in the transverse colon. A portion of this was removed and a hot biopsy forceps was used to cauterize the area. The patient had diverticula in the descending and sigmoid colon. No identified bleeding diverticula was seen in the rectum, scope was retroflexed and some hemorrhoidal tissue was noted. There was brisk bleeding from one of the internal hemorrhoids. The scope was removed and an anoscope was then inserted. 3 hemorrhoid bands were then placed. The colonoscope was reinserted and there still appeared to be some bleeding. The anoscope was then reinserted and 2 a dditional hemorrhoid bands were then placed. The procedure was then terminated. The patient tolerated the procedure very well. Complications: None apparent Condition: The patient was transported to PACU in stable condition. Dori Cruz MD General Surgery
--- NOTE | 2020-12-29 16:05 | PCM48HPAN ---
Post Anesthesia Note - EVALUATION WITHIN 48HRS OF ANESTHETIC Vital Signs in Normal Range: Yes Patient Participated in Evaluation: Yes Respiratory Function Stable: Yes Airway Patent: Yes Cardiovascular Function Stable: Yes Hydration Status Stable: Yes Pain Control Satisfactory: Yes Nausea and Vomiting Control Satisfactory: Yes Mental Status Recovered: Yes Vital Signs: Last Vital Signs Temp 97.7 F 12/29/20 13:26 Pulse 90 12/29/20 13:26 Resp 18 12/29/20 13:26 BP 106/68 12/29/20 13:26 Pulse Ox 100 12/29/20 06:30 Orthostatic Blood Pressure [ 84/47 Standing] Orthostatic Blood Pressure [ 124/77 Supine] 1550 99% RA 121/70 71 14 97.6
[2020-12-29] MEDS ORDERED: Ketorolac 15 MG/ML SDV IVPUSH ONE (18:42)
[2020-12-29] MEDS: Acetaminophen/oxyCODONE 325-5 MG Tab PO PRN (19:03)
[2020-12-29] MEDS ORDERED: Melatonin 3 MG Tab PO PRN (21:00)
[2020-12-29] MEDS ORDERED: ALPRAZolam 1 MG Tab PO SCH (22:45)
[2020-12-30] MEDS: Magnesium Oxide 400 MG Tab PO SCH ×2 (00:27→11:51)
[2020-12-30] MEDS ORDERED: Pantoprazole 40 MG Tab.CR PO SCH (06:00)
[2020-12-30] MEDS: Acetaminophen/oxyCODONE 325-5 MG Tab PO PRN (06:15)
[2020-12-30] MEDS ORDERED: Rosuvastatin 10 MG Tab PO SCH (09:00)
[2020-12-30] MEDS ORDERED: Clopidogrel 75 MG Tab PO SCH (09:00)
[2020-12-30] MEDS ORDERED: Aspirin 81 MG Tab.EC PO SCH (09:00)
--- NOTE | 2020-12-30 11:48 | PCM.SURGPN ---
- General Info Date of Service: 12/30/20 Admission Diagnosis/Problem: GI bleed not requiring more than 4 units of blood in 24 hours, ICU, or surgery Functional Status: Reports: Pain Controlled, Tolerating Diet, Urinating, Other (no further bleeding) - Patient Data Vitals - Most Recent: Last Vital Signs Temp 36.7 C 12/30/20 07:40 Pulse 79 12/30/20 09:56 Resp 16 12/30/20 07:40 BP 122/83 12/30/20 07:40 Pulse Ox 97 12/30/20 09:56 Orthostatic Blood Pressure [ 84/47 Standing] Orthostatic Blood Pressure [ 124/77 Supine] Weight - Most Recent: 84.867 kg I&O - Last 24 Hours: Intake & Output 12/29/20 12/30/20 12/30/20 22:59 06:59 14:59 Intake Total 770 800 Output Total 1300 Balance 770 -500 Lab Results Last 24 Hrs: Laboratory Results - last 24 hr 12/29/20 12/29/20 12/29/20 Range/Units 07:15 08:43 12:00 WBC (4.23-9.07) K/mm3 RBC (4.63-6.08) M/mm3 Hgb (13.7-17.5) gm/dl Hct (40.1-51.0) % MCV (79.0-92.2) fl MCH (25.7-32.2) pg MCHC (32.2-35.5) g/dl RDW Std Deviation (35.1-43.9) fL Plt Count (163-337) K/mm3 MPV (9.4-12.3) fl Neut % (Auto) (34.0-67.9) % Lymph % (Auto) (21.8-53.1) % [place] % (Auto) (5.3-12.2) % Eos % (Auto) (0.8-7.0) Baso % (Auto) (0.1-1.2) % Neut # (Auto) (1.78-5.38) K/mm3 Lymph # (Auto) (1.32-3.57) K/mm3 [place] # (Auto) (0.30-0.82) K/mm3 Eos # (Auto) (0.04-0.54) K/mm3 Baso # (Auto) (0.01-0.08) K/mm3 Manual Slide Review NT-Pro-B Natriuret Pep (0-125) pg/mL SARS-CoV-2 RNA (YOBANY) Negative (NEGATIVE) Blood Type A POSITIVE Gel Antibody Screen Negative Crossmatch See Detail See Detail 12/29/20 12/29/20 12/30/20 Range/Units 12:20 20:40 02:15 WBC 10.32 H 8.65 (4.23-9.07) K/mm3 RBC 3.21 L 3.12 L (4.63-6.08) M/mm3 Hgb 10.1 L 9.7 L (13.7-17.5) gm/dl Hct 30.6 L 29.7 L (40.1-51.0) % MCV 95.3 H D 95.2 H (79.0-92.2) fl MCH 31.5 31.1 (25.7-32.2) pg MCHC 33.0 32.7 (32.2-35.5) g/dl RDW Std Deviation 50.9 H 51.5 H (35.1-43.9) fL Plt Count 131 L 129 L (163-337) K/mm3 MPV 11.6 11.7 (9.4-12.3) fl Neut % (Auto) 60.8 51.1 (34.0-67.9) % Lymph % (Auto) 23.2 28.8 (21.8-53.1) % [place] % (Auto) 15.5 H 18.5 H (5.3-12.2) % Eos % (Auto) 0.1 L 1.2 (0.8-7.0) Baso % (Auto) 0.2 0.2 (0.1-1.2) % Neut # (Auto) 6.28 H 4.42 (1.78-5.38) K/mm3 Lymph # (Auto) 2.39 2.49 (1.32-3.57) K/mm3 [place] # (Auto) 1.60 H 1.60 H (0.30-0.82) K/mm3 Eos # (Auto) 0.01 L 0.10 (0.04-0.54) K/mm3 Baso # (Auto) 0.02 0.02 (0.01-0.08) K/mm3 Manual Slide Review Abnormal smear NT-Pro-B Natriuret Pep 36 (0-125) pg/mL SARS-CoV-2 RNA (YOBANY) (NEGATIVE) Blood Type Gel Antibody Screen Crossmatch Med Orders - Current: Current Medications Alprazolam (Alprazolam 1 Mg Tab) 2 mg PO BEDTIME [facility] Last Admin: 12/30/20 00:27 Dose: 2 mg Documented by: Aspirin (Aspirin 81 Mg Tab.Ec) 81 mg PO DAILY [facility] Last Admin: 12/30/20 11:32 Dose: 81 mg Documented by: Clopidogrel Bisulfate (Clopidogrel 75 Mg Tab) 75 mg PO DAILY [facility] Last Admin: 12/30/20 11:33 Dose: 75 mg Documented by: Magnesium Oxide (Magnesium Oxide 400 Mg Tab) 400 mg PO DAILY [facility] Last Admin: 12/30/20 00:27 Dose: 400 mg Documented by: Melatonin (Melatonin 3 Mg Tab) 6 mg PO BEDTIME PRN PRN Reason: Sleep Oxycodone/Acetaminophen (Acetaminophen/Oxycodone 325-5 Mg Tab) 1 tab PO Q4H PRN PRN Reason: Pain (moderate 4-6) Last Admin: 12/30/20 06:15 Dose: 1 tab Documented by: Pantoprazole Sodium (Pantoprazole 40 Mg Tab.Cr) 40 mg PO ACBREAKFAST [facility] Last Admin: 12/30/20 06:15 Dose: 40 mg Documented by: Rosuvastatin Calcium (Rosuvastatin 10 Mg Tab) 20 mg PO DAILY [facility] Last Admin: 12/30/20 09:19 Dose: 20 mg Documented by: Discontinued Medications Citric Acid/Sodium Citrate (Citric Acid/Sodium Citrate Solution 30 Ml Cup) Confirm Administered Dose 30 ml .ROUTE .STK-MED ONE Stop: 12/29/20 12:57 Sodium Chloride (Normal Saline) 1,000 mls @ 999 mls/hr IV ASDIRECTED [facility] Last Admin: 12/29/20 07:32 Dose: 150 mls/hr Documented by: Pantoprazole Sodium 80 mg/ (Sodium Chloride) 100 mls @ 10 mls/hr IV Q10H [facility] Last Admin: 12/29/20 12:33 Dose: 10 mls/hr Documented by: Dextrose/Sodium Chloride (Dextrose 5%-Normal Saline) 1,000 mls @ 250 mls/hr IV ASDIRECTED [facility] Last Admin: 12/29/20 12:08 Dose: 250 mls/hr Documented by: Lidocaine HCl (Xylocaine-Mpf 1%) Confirm Administered Dose 4 mls @ as directed .ROUTE .STK-MED ONE Stop: 12/29/20 12:54 Sodium Chloride (Normal Saline) 1,000 mls @ 150 mls/hr IV ASDIRECTED [facility] Last Admin: 12/29/20 13:25 Dose: 150 mls/hr Documented by: Lactated Ringer's (Ringers, Lactated) Confirm Administered Dose 1,000 mls @ as directed .ROUTE .STK-MED ONE Stop: 12/29/20 15:01 Ketorolac Tromethamine (Ketorolac 15 Mg/Ml Sdv) 15 mg IVPUSH ONETIME ONE Stop: 12/29/20 18:43 Last Admin: 12/29/20 19:02 Dose: 15 mg Documented by: Lidocaine HCl (Lidocaine 1% 10 Ml Mdv) 10 ml INJECT ONETIME ONE Stop: 12/29/20 07:20 Last Admin: 12/29/20 07:32 Dose: Not Given Documented by: Lidocaine HCl (Lidocaine 2% Jelly 10 Ml Urojet) Confirm Administered Dose 10 ml .ROUTE .STK-MED ONE Stop: 12/29/20 07:27 Last Admin: 12/29/20 07:32 Dose: 10 ml Documented by: Magnesium Citrate (Magnesium Citrate Solution 296 Ml Bottle) 240 ml PO ONETIME ONE Stop: 12/29/20 11:50 Last Admin: 12/29/20 12:03 Dose: 240 ml Documented by: Metoclopramide HCl (Metoclopramide 10 Mg/2 Ml Sdv) Confirm Administered Dose 10 mg .ROUTE .STK-MED ONE Stop: 12/29/20 12:54 Pantoprazole Sodium (Pantoprazole 40 Mg Vial) 40 mg IVPUSH ONETIME ONE Stop: 12/29/20 11:48 Last Admin: 12/29/20 12:03 Dose: 40 mg Documented by: Propofol (Propofol 200 Mg/20 Ml Sdv) Confirm Administered Dose 200 mg .ROUTE .STK-MED ONE Stop: 12/29/20 12:55 Propofol (Propofol 200 Mg/20 Ml Sdv) Confirm Administered Dose 200 mg .ROUTE .STK-MED ONE Stop: 12/29/20 14:28 Propofol (Propofol 200 Mg/20 Ml Sdv) Confirm Administered Dose 200 mg .ROUTE .STK-MED ONE Stop: 12/29/20 15:12 - Exam General: Alert, Oriented HEENT: EOMI Lungs: Normal Respiratory Effort GI/Abdominal Exam: Soft, Non-Tender, No Distention Sepsis Event Note - Evaluation Sepsis Screening Result: No Definite Risk - Focused Exam Vital Signs: Vital Signs Temp Pulse Resp BP Pulse Ox 12/30/20 09:56 79 97 12/30/20 07:40 36.7 C 110 H 16 122/83 95 12/30/20 06:19 36.7 C 81 18 130/73 98 12/30/20 00:18 88 18 135/67 96 - Problem List & Annotations (1) GI bleed SNOMED Code(s): 50938088 Code(s): K92.2 - GASTROINTESTINAL HEMORRHAGE, UNSPECIFIED Status: Acute Current Visit: Yes Qualifiers: GI bleed type/associated pathology: anorectal hemorrhage Qualified Code(s): K62.5 - Hemorrhage of anus and rectum - Problem List Review Problem List Initiated/Reviewed/Updated: Yes - My Orders Last 24 Hours: Active Orders 24 hr Category Date Time Status Patient Status [ADT] Routine ADT 12/29/20 16:11 Active Oxygen Therapy [RC] PRN Care 12/29/20 16:11 Active Up With Assistance [RC] ASDIRECTED Care 12/29/20 16:11 Active VTE/DVT Education [RC] PER UNIT ROUTINE Care 12/29/20 16:11 Active Vital Signs [RC] Q4HR Care 12/29/20 16:11 Active Regular Diet [DIET] Diet 12/29/20 Dinner Active ALPRAZolam [Xanax] Med 12/29/20 22:45 Active 2 mg PO BEDTIME Acetaminophen/oxyCODONE [Percocet 325-5 MG] Med 12/29/20 18:42 Active 1 tab PO Q4H PRN Aspirin [Halfprin] Med 12/30/20 09:00 Active 81 mg PO DAILY Clopidogrel [Plavix] Med 12/30/20 09:00 Active 75 mg PO DAILY Magnesium Oxide Med 12/30/20 09:00 Active 400 mg PO DAILY Melatonin Med 12/29/20 21:00 Active 6 mg PO BEDTIME PRN Pantoprazole [ProTONIX] Med 12/30/20 06:00 Active 40 mg PO ACBREAKFAST Rosuvastatin [Crestor] Med 12/30/20 09:00 Active 20 mg PO DAILY Schedule Procedure [COMM] Stat Ot 12/29/20 13:02 Ordered Sitz Bath [OM.PC] Routine Ot 12/29/20 18:43 Ordered Transfuse PRBC [Transfuse Red Blood Cells] [COMM] Stat Ot 12/29/20 12:48 Ordered Resuscitation Status Routine Resus Stat 12/29/20 16:11 Ordered Medication Orders Alprazolam (Alprazolam 1 Mg Tab) 2 mg PO BEDTIME [facility] Last Admin: 12/30/20 00:27 Dose: 2 mg Documented by: CHLOE Aspirin (Aspirin 81 Mg Tab.Ec) 81 mg PO DAILY [facility] Last Admin: 12/30/20 11:32 Dose: 81 mg Documented by: ARLENE Clopidogrel Bisulfate (Clopidogrel 75 Mg Tab) 75 mg PO DAILY [facility] Last Admin: 12/30/20 11:33 Dose: 75 mg Documented by: ARLENE Magnesium Oxide (Magnesium Oxide 400 Mg Tab) 400 mg PO DAILY [facility] Last Admin: 12/30/20 00:27 Dose: 400 mg Documented by: CHLOE Melatonin (Melatonin 3 Mg Tab) 6 mg PO BEDTIME PRN PRN Reason: Sleep Oxycodone/Acetaminophen (Acetaminophen/Oxycodone 325-5 Mg Tab) 1 tab PO Q4H PRN PRN Reason: Pain (moderate 4-6) Last Admin: 12/30/20 06:15 Dose: 1 tab Documented by: Admin: 12/29/20 19:03 Dose: 1 tab Documented by: WENDI Pantoprazole Sodium (Pantoprazole 40 Mg Tab.Cr) 40 mg PO ACBREAKFAST [facility] Last Admin: 12/30/20 06:15 Dose: 40 mg Documented by: CHLOE Rosuvastatin Calcium (Rosuvastatin 10 Mg Tab) 20 mg PO DAILY [facility] Last Admin: 12/30/20 09:19 Dose: 20 mg Documented by: ARLENE - Assessment Assessment (Free Text/Narrative):: 75 y/o gentleman with bleeding internal hemorrhoid, s/p EGD and colonoscopy with hemorrhoid banding. Doing well - Plan Plan (Free Text/Narrative):: - no further bleeding - continue on current pain regimen - may discharge home with follow up at home institution. Dori Cruz MD General surgery
--- NOTE | 2020-12-30 11:52 | PCM.DCSUM1 ---
Discharge Summary - Hospital Course Free Text/Narrative:: The patient is a 75 y/o gentleman who presented to the ED with a brisk GI bleed. He was taken for an EGD and colonoscopy, and found to have a bleeding internal hemorrhoid. He had hemorrhoid banding successfully and was admitted for observation. He also had 2 U PRBC transfusion, and responded well with appropriate equilibration. He was discharged home POD 1. Modified Coffee Scale: No Symptoms at All Modified Coffee Scale Score: 0 - Discharge Data Discharge Date: 12/30/20 Discharge Disposition: Home, Self-Care 01 Condition: Good - Referral to Home Health Primary Care Physician: PCP Not In Area - Discharge Diagnosis/Problem(s) (1) GI bleed SNOMED Code(s): 97460819 ICD Code: K92.2 - GASTROINTESTINAL HEMORRHAGE, UNSPECIFIED Status: Acute Qualifiers: GI bleed type/associated pathology: anorectal hemorrhage Qualified Code(s): K62.5 - Hemorrhage of anus and rectum - Patient Summary/Data Operative Procedure(s) Performed: EGD with biopsy; and colonoscopy with biopsy and hemorrhoid banding - Patient Instructions Diet: Usual Diet as Tolerated Activity: As Tolerated Showering/Bathing: May Shower Showering/Bathing, Other: sit in a tub of warm water or warm shower as needed for pain Notify Provider of: Fever, Increased Pain, Nausea and/or Vomiting - Discharge Plan *PRESCRIPTION DRUG MONITORING PROGRAM REVIEWED*: Not Applicable *COPY OF PRESCRIPTION DRUG MONITORING REPORT IN PATIENT REY: Not Applicable Prescriptions/Med Rec: Acetaminophen/oxyCODONE [Percocet 325-5 MG] 1 tab PO Q4H PRN 14 Days #10 tablet PRN Reason: Pain (Moderate 4-6) Home Medications: Home Meds ALPRAZolam 2 mg PO BEDTIME 12/29/20 [History] Acetaminophen [Tylenol] 500 mg PO Q6HR PRN 12/29/20 [History] Aspirin [Halfprin] 81 mg PO DAILY 12/29/20 [History] Clopidogrel Bisulfate [Plavix] 75 mg PO DAILY 12/29/20 [History] Magnesium 400 mg PO DAILY 12/29/20 [History] Melatonin 5 mg PO BEDTIME PRN 12/29/20 [History] Multivit-Min/FA/Lycopen/Lutein [Centrum Silver Tablet] 1 tab PO DAILY 12/29/20 [History] Pantoprazole [ProTONIX] 40 mg PO DAILY 12/29/20 [History] Psyllium Husk [Metamucil] 1 pack PO DAILY 12/29/20 [History] Rosuvastatin [Crestor] 20 mg PO DAILY 12/29/20 [History] Acetaminophen/oxyCODONE [Percocet 325-5 MG] 1 tab PO Q4H PRN 14 Days #10 tablet 12/30/20 [Rx] Pantoprazole [ProTONIX] 40 mg PO ACBREAKFAST tab.cr 12/30/20 [Rx] Forms: ED Department Discharge Referrals: Jake Kinney [Other] (This is patients Primary Doctor follow up as needed, patient and will make own appt.) - Discharge Summary/Plan Comment DC Time >30 min.: No Total # of Minutes for Discharge Time: 10 - Patient Data Vitals - Most Recent: Last Vital Signs Temp 36.7 C 12/30/20 07:40 Pulse 79 12/30/20 09:56 Resp 16 12/30/20 07:40 BP 122/83 12/30/20 07:40 Pulse Ox 97 12/30/20 09:56 Orthostatic Blood Pressure [ 84/47 Standing] Orthostatic Blood Pressure [ 124/77 Supine] Weight - Most Recent: 84.867 kg I&O - Last 24 hours: Intake & Output 12/29/20 12/30/20 12/30/20 22:59 06:59 14:59 Intake Total 770 800 Output Total 1300 Balance 770 -500 Lab Results - Last 24 hrs: Laboratory Results - last 24 hr 12/29/20 12/29/20 12/29/20 Range/Units 07:15 12:00 12:20 WBC (4.23-9.07) K/mm3 RBC (4.63-6.08) M/mm3 Hgb (13.7-17.5) gm/dl Hct (40.1-51.0) % MCV (79.0-92.2) fl MCH (25.7-32.2) pg MCHC (32.2-35.5) g/dl RDW Std Deviation (35.1-43.9) fL Plt Count (163-337) K/mm3 MPV (9.4-12.3) fl Neut % (Auto) (34.0-67.9) % Lymph % (Auto) (21.8-53.1) % [place] % (Auto) (5.3-12.2) % Eos % (Auto) (0.8-7.0) Baso % (Auto) (0.1-1.2) % Neut # (Auto) (1.78-5.38) K/mm3 Lymph # (Auto) (1.32-3.57) K/mm3 [place] # (Auto) (0.30-0.82) K/mm3 Eos # (Auto) (0.04-0.54) K/mm3 Baso # (Auto) (0.01-0.08) K/mm3 Manual Slide Review NT-Pro-B Natriuret Pep 36 (0-125) pg/mL SARS-CoV-2 RNA (YOBANY) Negative (NEGATIVE) Blood Type A POSITIVE Gel Antibody Screen Negative Crossmatch See Detail 12/29/20 12/30/20 Range/Units 20:40 02:15 WBC 10.32 H 8.65 (4.23-9.07) K/mm3 RBC 3.21 L 3.12 L (4.63-6.08) M/mm3 Hgb 10.1 L 9.7 L (13.7-17.5) gm/dl Hct 30.6 L 29.7 L (40.1-51.0) % MCV 95.3 H D 95.2 H (79.0-92.2) fl MCH 31.5 31.1 (25.7-32.2) pg MCHC 33.0 32.7 (32.2-35.5) g/dl RDW Std Deviation 50.9 H 51.5 H (35.1-43.9) fL Plt Count 131 L 129 L (163-337) K/mm3 MPV 11.6 11.7 (9.4-12.3) fl Neut % (Auto) 60.8 51.1 (34.0-67.9) % Lymph % (Auto) 23.2 28.8 (21.8-53.1) % [place] % (Auto) 15.5 H 18.5 H (5.3-12.2) % Eos % (Auto) 0.1 L 1.2 (0.8-7.0) Baso % (Auto) 0.2 0.2 (0.1-1.2) % Neut # (Auto) 6.28 H 4.42 (1.78-5.38) K/mm3 Lymph # (Auto) 2.39 2.49 (1.32-3.57) K/mm3 [place] # (Auto) 1.60 H 1.60 H (0.30-0.82) K/mm3 Eos # (Auto) 0.01 L 0.10 (0.04-0.54) K/mm3 Baso # (Auto) 0.02 0.02 (0.01-0.08) K/mm3 Manual Slide Review Abnormal smear NT-Pro-B Natriuret Pep (0-125) pg/mL SARS-CoV-2 RNA (YOBANY) (NEGATIVE) Blood Type Gel Antibody Screen Crossmatch Med Orders - Current: Current Medications Alprazolam (Alprazolam 1 Mg Tab) 2 mg PO BEDTIME [facility] Last Admin: 12/30/20 00:27 Dose: 2 mg Documented by: Aspirin (Aspirin 81 Mg Tab.Ec) 81 mg PO DAILY [facility] Last Admin: 12/30/20 11:32 Dose: 81 mg Documented by: Clopidogrel Bisulfate (Clopidogrel 75 Mg Tab) 75 mg PO DAILY [facility] Last Admin: 12/30/20 11:33 Dose: 75 mg Documented by: Magnesium Oxide (Magnesium Oxide 400 Mg Tab) 400 mg PO DAILY [facility] Last Admin: 12/30/20 11:51 Dose: Not Given Documented by: Melatonin (Melatonin 3 Mg Tab) 6 mg PO BEDTIME PRN PRN Reason: Sleep Oxycodone/Acetaminophen (Acetaminophen/Oxycodone 325-5 Mg Tab) 1 tab PO Q4H PRN PRN Reason: Pain (moderate 4-6) Last Admin: 12/30/20 06:15 Dose: 1 tab Documented by: Pantoprazole Sodium (Pantoprazole 40 Mg Tab.Cr) 40 mg PO ACBREAKFAST [facility] Last Admin: 12/30/20 06:15 Dose: 40 mg Documented by: Rosuvastatin Calcium (Rosuvastatin 10 Mg Tab) 20 mg PO DAILY [facility] Last Admin: 12/30/20 09:19 Dose: 20 mg Documented by: Discontinued Medications Citric Acid/Sodium Citrate (Citric Acid/Sodium Citrate Solution 30 Ml Cup) Confirm Administered Dose 30 ml .ROUTE .STK-MED ONE Stop: 12/29/20 12:57 Sodium Chloride (Normal Saline) 1,000 mls @ 999 mls/hr IV ASDIRECTED [facility] Last Admin: 12/29/20 07:32 Dose: 150 mls/hr Documented by: Pantoprazole Sodium 80 mg/ (Sodium Chloride) 100 mls @ 10 mls/hr IV Q10H [facility] Last Admin: 12/29/20 12:33 Dose: 10 mls/hr Documented by: Dextrose/Sodium Chloride (Dextrose 5%-Normal Saline) 1,000 mls @ 250 mls/hr IV ASDIRECTED [facility] Last Admin: 12/29/20 12:08 Dose: 250 mls/hr Documented by: Lidocaine HCl (Xylocaine-Mpf 1%) Confirm Administered Dose 4 mls @ as directed .ROUTE .STK-MED ONE Stop: 12/29/20 12:54 Sodium Chloride (Normal Saline) 1,000 mls @ 150 mls/hr IV ASDIRECTED [facility] Last Admin: 12/29/20 13:25 Dose: 150 mls/hr Documented by: Lactated Ringer's (Ringers, Lactated) Confirm Administered Dose 1,000 mls @ as directed .ROUTE .STK-MED ONE Stop: 12/29/20 15:01 Ketorolac Tromethamine (Ketorolac 15 Mg/Ml Sdv) 15 mg IVPUSH ONETIME ONE Stop: 12/29/20 18:43 Last Admin: 12/29/20 19:02 Dose: 15 mg Documented by: Lidocaine HCl (Lidocaine 1% 10 Ml Mdv) 10 ml INJECT ONETIME ONE Stop: 12/29/20 07:20 Last Admin: 12/29/20 07:32 Dose: Not Given Documented by: Lidocaine HCl (Lidocaine 2% Jelly 10 Ml Urojet) Confirm Administered Dose 10 ml .ROUTE .STK-MED ONE Stop: 12/29/20 07:27 Last Admin: 12/29/20 07:32 Dose: 10 ml Documented by: Magnesium Citrate (Magnesium Citrate Solution 296 Ml Bottle) 240 ml PO ONETIME ONE Stop: 12/29/20 11:50 Last Admin: 12/29/20 12:03 Dose: 240 ml Documented by: Metoclopramide HCl (Metoclopramide 10 Mg/2 Ml Sdv) Confirm Administered Dose 10 mg .ROUTE .STK-MED ONE Stop: 12/29/20 12:54 Pantoprazole Sodium (Pantoprazole 40 Mg Vial) 40 mg IVPUSH ONETIME ONE Stop: 12/29/20 11:48 Last Admin: 12/29/20 12:03 Dose: 40 mg Documented by: Propofol (Propofol 200 Mg/20 Ml Sdv) Confirm Administered Dose 200 mg .ROUTE .S TK-MED ONE Stop: 12/29/20 12:55 Propofol (Propofol 200 Mg/20 Ml Sdv) Confirm Administered Dose 200 mg .ROUTE .STK-MED ONE Stop: 12/29/20 14:28 Propofol (Propofol 200 Mg/20 Ml Sdv) Confirm Administered Dose 200 mg .ROUTE .STK-MED ONE Stop: 12/29/20 15:12 *Q Meaningful Use (DIS) - VTE *Q VTE Pharmacological Contraindications *Q: Active Hemorrhage
== END 2020-12-30 13:45 | disposition home or self-care (01) ==
LOC: JD.ED 06:16 → JD.SDS 13:18 → JD.MS 16:19
PROVIDERS: ADMIT Surgery; ATTEND Surgery
DX: D12.3 Benign neoplasm of transverse colon (principal); K29.70 Gastritis, unspecified, without bleeding; K31.89 Other diseases of stomach and duodenum; K31.7 Polyp of stomach and duodenum; K22.70 Barrett's esophagus without dysplasia; K22.8 Other specified diseases of esophagus; K64.8 Other hemorrhoids; K57.30 Diverticulosis of large intestine without perforation or abscess without bleeding; Z79.899 Other long term (current) drug therapy; Z79.82 Long term (current) use of aspirin; Z01.812 Encounter for preprocedural laboratory examination; Z20.822 Contact with and (suspected) exposure to COVID-19
CPT/HCPCS: 36415; 36430; 43239; 45384; 46221; 80053; 83880; 85025; 85610; 85730; 86850; 86900; 86901; 86922; 96365; 96366; 96376; 99285; A9270; C9113; J1885; J2704; J2765; J7030; J7042; J7120; P9016; U0002; 00813; 45300; 88305; 96375; 99100; G0378